=== PATIENT | female | born 1960 | race Caucasian/White ===

== ENCOUNTER → 2020-12-07 15:07 | Outpatient (CLI) | payer MEDICAID ==
[2020-07-20 13:02] VITALS: BMI 27.4
[~2020-12-07 15:07] MED LIST: ASPIRIN81 MG PO; FLORAJEN3 CAPS460 MG PO; GLUCOPHAGE500 MG PO; IPRAT-ALBUT 0.5-3 ML UPD; LEVOFLOXACIN500 MG PO; MUCINEX600 MG PO; NICODERM CQ1 EAC3 TRANSDERM; NYSTATIN1 PWD TOPICAL; PROTONIX40 MG PO; TESSALON PERLE100 MG PO; XOPENEX 1.1.25 MG/3 UPD
== END | disposition home or self-care (01) ==
LOC: D.RT 10-30 14:00
PROVIDERS: ATTEND Internal Medicine Pulmonary Disease
DX: J44.9 Chronic obstructive pulmonary disease, unspecified (principal)

== ENCOUNTER 2021-02-03 17:30 | Outpatient (CLI) | payer BC ==
[2020-07-20 13:02] VITALS: BMI 27.4
== END 2021-02-03 23:59 | disposition home or self-care (01) ==
LOC: D.MAMMO 17:30
PROVIDERS: ATTEND Clinical Nurse Specialist Adult Health
DX: Z12.31 Encounter for screening mammogram for malignant neoplasm of breast (principal)